=== PATIENT | female | born 1930 | race Caucasian/White ===

== ENCOUNTER 2017-01-04 15:11 | Emergency (ER) | payer MEDICARE, OTHER ==
[2017-01-04 15:24] VITALS: BP 120/54
--- NOTE | 2017-01-04 15:48 | UC ---
General HPI - HPI Summary HPI Summary: 2 DAYS OF MILD RUNNY NOSE, FATIGUE AND CORONEL. FEELS ACHY. DENIES, COUGH, FEVER, ST , EAR PAIN, N/V/D. NO BACK PAIN. DOES HAVE SOME URINARY FREQUENCY AND HAS HAD UTI'S IN THE PAST. WONDERS IF SHE HAS THE FLU. HAD A FLU SHOT ABOUT A MONTH AGO. - History of Current Complaint Chief Complaint: UCGeneralIllness Stated Complaint: FLU SYMPTOMS,FATIGUE,HEADACHE Time Seen by Provider: 01/04/17 15:30 Hx Obtained From: Patient, Family/Occupational Health And Safety Adviser - Onset/Duration: Gradual Onset, Lasting Days, Still Present Timing: Constant Onset Severity: Moderate Current Severity: Moderate Pain Intensity: 0 - Allergy/Home Medications Allergies/Adverse Reactions: Allergies Allergy/AdvReac Type Severity Reaction Status Date / Time Penicillins Allergy Rash Verified 01/04/17 15:25 Pollen Allergy Runny Nose Uncoded 01/04/17 15:24 Sulfa Drugs Allergy Rash Uncoded 01/04/17 15:25 Home Medications: Home Medications Allergy Pills 01/04/17 [History] Coumadin 1 tab PO DAILY 01/04/17 [History Confirmed 01/04/17] PMH/Surg Hx/FS Hx/Imm Hx - Additional Past Medical History Additional PMH: FACTOR V LEIDEN - Surgical History Surgical History: None Surgery Procedure, Year, and Place: LEFT STERE[facility] 11/2010, open biopsy left breast in [place]. hysterectomy. ectopic - Family History Known Family History: Negative: Hypertension - Social History Alcohol Use: None Substance Use Type: None Smoking Status (MU): Never Smoked Tobacco - Immunization History Most Recent Influenza Vaccination: Fall 2016 Review of Systems Constitutional: Fatigue ENT: Nasal Discharge Respiratory: Negative Cardiovascular: Negative Gastrointestinal: Negative Genitourinary: Frequency Musculoskeletal: Myalgia Neurological: Headache All Other Systems Reviewed And Are Negative: Yes Physical Exam Triage Information Reviewed: Yes Appearance: Well-Appearing, No Pain Distress, Well-Nourished Vital Signs: Initial Vital Signs Temp 98 F 01/04/17 15:17 Pulse 87 01/04/17 15:17 Resp 16 01/04/17 15:17 BP 120/54 01/04/17 15:17 Pulse Ox 100 01/04/17 15:17 Vital Signs Reviewed: Yes Eyes: Positive: Conjunctiva Clear ENT: Positive: Hearing grossly normal, Pharynx normal, TMs normal Neck: Positive: Supple, Nontender, No Lymphadenopathy Respiratory Exam: Normal Cardiovascular Exam: Normal Abdomen Description: Positive: Nontender, Soft. Negative: CVA Tenderness (R), CVA Tenderness (L), Distended, Guarding Musculoskeletal: Positive: No Edema Neurological: Positive: Alert Psychological: Positive: Normal Response To Family, Age Appropriate Behavior Skin: Negative: rashes Diagnostics - Laboratory Diagnostic Studies Completed/Ordered: URINE TRACE BLOOD, RAPID FLU NEG Course/Dx - Differential Dx - Multi-Symptom Provider Diagnoses: ACUTE VIRAL SYNDROME Discharge - Discharge Plan Condition: Stable Disposition: HOME Patient Education Materials: Viral Syndrome (ED) Referrals: Ghassan Beck MD [Primary Care Provider] - 1 Week Additional Instructions: VIRAL SYNDROME: The physician has diagnosed a viral infection. Viruses not only cause "colds," but can cause many different symptoms including generalized aching, fever, headache, cough, diarrhea, nausea, vomiting, and fatigue. The treatment, for the most part, is simply relief of symptoms. This means that antibiotics are usually not given. Rest, fluids, pain medications and, occasionally, medication for the specific symptoms that are most bothersome will be prescribed. Contact the physician if you develop any new or unusual symptoms such as severe headache, stiff neck, high fever, chest pain, productive cough, or shortness of breath. You should be rechecked if you don't see marked improvement within seven to 10 days. FLU TEST NEGATIVE. URINE DIP HAD SOME TRACE BLOOD BUT NO SIGN OF INFECTION. FOLLOW-UP WITH UROLOGY TO ENSURE THE BLOOD CLEARS. AT PRESENT YOUR SYMPTOMS DO NOT HAVE A CLEAR BACTERIAL CAUSE. NO IMMEDIATE INTERVENTION INDICATED AT PRESENT. FOLLOW-UP WITH YOUR PCP IF YOU ARE NOT IMPROVING EXPECTED OVER THE NEXT WEEK OR SO.
== END 2017-01-04 16:38 | disposition home or self-care (01) ==
LOC: UCEAST 15:11
DX: B34.9 Viral infection, unspecified (principal); R35.0 Frequency of micturition; Z87.440 Personal history of urinary (tract) infections; Z88.0 Allergy status to penicillin; Z88.2 Allergy status to sulfonamides
CPT/HCPCS: 81003; 87502; 99211; G0463

== ENCOUNTER 2017-06-09 19:04 | Inpatient (IN) | payer MEDICARE, OTHER ==
[2017-06-09] MEDS ORDERED: Ketorolac INJ* 30 MG/ML 1 ML VIAL IV ONE (20:17)
[2017-06-09 20:26] LABS: ABS Basophils 0.1 10^3/ul (0-0.2); ABS Eosinophils 0.2 10^3/ul (0-0.6); ABS Lymphocytes 1.4 10^3/ul (1.0-4.8); ABS Monocytes 1.4 10^3/ul (0-0.8); ABS Neutrophils 9.9 10^3/ul (1.5-7.7); ABS Nucleated RBC 0 10^3/ul; Eosinophil % 1.9 % (0-6); Hematocrit 35 % (35-47); Hemoglobin 11.9 g/dl (12.0-16.0); Lymphocyte % 10.5 % (25-47); Mean Corpuscular HGB Conc 34 g/dl (31-36); Mean Corpuscular Hemoglobin 30 pg (27-31); Mean Corpuscular Volume 89 fL (80-97); Mean Platelet Volume 8 um3 (7.4-10.4); Nucleated Red Blood Cells % 0.1; Platelet Count 180 10^3/ul (150-450); Red Blood Count 3.96 10^6/ul (4.0-5.4); Red Cell Distribution Width 14 % (10.5-15)
[2017-06-09 20:38] LABS: INR 1.4 (0.77-1.02)
[2017-06-09 20:45] LABS: EGFR Non-African American 60.4 (>60)
--- NOTE | 2017-06-09 20:53 | RAD ---
INDICATION: Chest pain. COMPARISON: There are no prior studies available for comparison. TECHNIQUE: A portable view of the chest was obtained. FINDINGS: Cardiac and mediastinal contours appear to be within normal limits. The lungs are underinflated. There is a small infiltrate at the left lung base. No pleural effusion is seen. IMPRESSION: LOW LUNG VOLUMES, SMALL LEFT BASILAR INFILTRATE.
[2017-06-09] MEDS ORDERED: Warfarin TAB(*) 1 MG PO SCH (21:00)
[2017-06-09] MEDS ORDERED: Iohexol 350* (CONTRAST) 500 ML MDV IV ONE (21:25)
--- NOTE | 2017-06-09 21:51 | RAD ---
INDICATION: Chest pain. COMPARISON: Comparison is made with a prior chest x-ray study from June 09, 2017. TECHNIQUE: A CT angiogram of the chest was performed with intravenous following intravenous injection of 58 ml of Omnipaque 350 nonionic contrast. Contiguous axial sections were obtained from the lung apices through the lung bases. Images were reconstructed in the coronal and sagittal planes. FINDINGS: There are intraluminal filling defects in several left basilar segmental and subsegmental arteries consistent with multiple pulmonary emboli. The heart is within normal limits in size. There is a trace pericardial effusion. The thoracic aorta is normal in caliber and demonstrates homogeneous contrast opacification. No significant enlarged mediastinal or hilar lymph nodes are seen. There is a small left lower lobe infiltrate and a small left pleural effusion. Images of the upper abdomen demonstrate no acute finding. There appear to be bilateral renal cysts which are partially visualized on this study. No significant focal osseous abnormality is seen. The results of this exam were called to the referring clinician. IMPRESSION: 1. MULTIPLE LEFT LOWER LOBE PULMONARY EMBOLI. 2. TRACE PERICARDIAL EFFUSION. 3. SMALL LEFT LOWER LOBE INFILTRATE AND SMALL LEFT PLEURAL EFFUSION.
[2017-06-09] MEDS ORDERED: Enoxaparin(*) 60 MG/0.6 ML SYR SUBCUT ONE (22:50)
--- NOTE | 2017-06-09 23:09 | HP ---
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 Today around 1000 AM she began having upper back and right shoulder pain without associated SOB, N/V, chest pain, sweats, cough, congestion, F/C, diarrhea, change in activity/injury, or other issue. D-dimer was >800 and CTA chest revealed multiple L lung emboli. She will be admitted for enoxaparin bridging to warfarin. PMedHx factor V leiden deficiency DVT failed rivaroxaban, started on warfarin last Tuesday dementia, mild bordering moderate Ambulatory Orders Acetaminophen TAB* [Tylenol TAB*] 325 mg PO Q4H PRN 06/09/17 Warfarin TAB(*) [Coumadin TAB(*)] 3 mg PO EVERY OTHER DAY 06/09/17 Warfarin TAB(*) [Coumadin TAB(*)] 4.5 mg PO EVERY OTHER DAY 06/09/17 Allergies Penicillins Allergy (Verified 06/09/17 19:23) Rash Pollen Allergy (Uncoded 06/09/17 19:23) Runny Nose Sulfa Drugs Allergy (Uncoded 06/09/17 19:23) Rash PSurgHx tonsillectomy hysterectomy SocHx: no tobacco, alcohol, or recreational drugs; lives with ; retired preschool teacher & historian research assistant; full code status FamHx: Mother: passed at 91 of "old age"; Father: passed in his late 60s 2nd colon CA ROS: as above, otherwise reviewed and all were negative vitals: Vital Signs Temp 36.9 C 06/10/17 00:42 Pulse 111 06/10/17 00:42 Resp 14 06/10/17 00:42 BP 140/68 06/10/17 00:42 Pulse Ox 98 06/10/17 01:16 Intake & Output 06/09/17 06/09/17 06/10/17 11:59 23:59 11:59 Weight 49.895 kg 120.1 kg Constitutional: NAD, normally developed, elderly white female HEENM: atraumatic; sclera/conjunctiva: anicteric/clear; hearing: clinically mildly decreased; oropharynx: clear, mucosa moist Neck: soft tissue: non-tender; thyroid: normal Pulmonary: clear to auscultation bilaterally, good aeration, no accessory muscle use CV: RR/RR, normal S1S2, no carotid bruit, no jugular venous distention, 2+ B DP/ PT, no edema Abdominal: soft, non-distended, non-tender, no rebound/guarding/rigidity, normoactive bowel sounds, no hepatosplenomegaly or masses, no costovertebral angle tenderness Musculoskeletal: general: grossly intact, no tenderness to palpation Integumental: normal appearance & texture of exposed skin for age, bruising R posterior hand Psychiatric orientation: AA&O to PP, loosely to situation affect: calm mood: cooperative eye contact: fair content: borderline reliability memory: impaired responses: timely insight: fair to poor Testing: Lab Results 06/09/17 06/09/17 06/09/17 Range/Units 20:15 20:15 20:15 WBC 13.0 H (3.5-10.8) 10^3/ul RBC 3.96 L (4.0-5.4) 10^6/ul Hgb 11.9 L (12.0-16.0) g/dl Hct 35 (35-47) % MCV 89 (80-97) fL MCH 30 (27-31) pg MCHC 34 (31-36) g/dl RDW 14 (10.5-15) % Plt Count 180 (150-450) 10^3/ul MPV 8 (7.4-10.4) um3 Neut % (Auto) 76.4 (38-83) % Lymph % (Auto) 10.5 L (25-47) % Luna % (Auto) 10.5 H (0-7) % Eos % (Auto) 1.9 (0-6) % Baso % (Auto) 0.7 (0-2) % Absolute Neuts (auto) 9.9 H (1.5-7.7) 10^3/ul Absolute Lymphs (auto) 1.4 (1.0-4.8) 10^3/ul Absolute Monos (auto) 1.4 H (0-0.8) 10^3/ul Absolute Eos (auto) 0.2 (0-0.6) 10^3/ul Absolute Basos (auto) 0.1 (0-0.2) 10^3/ul Absolute Nucleated RBC 0 10^3/ul Nucleated RBC % 0.1 INR (Anticoag Therapy) 1.40 H (0.77-1.02) APTT 27.4 (26.0-36.3) seconds D-Dimer, Quantitative 854 H (Less Than 230) ng/mL Sodium (133-145) mmol/L Potassium (3.5-5.0) mmol/L Chloride (101-111) mmol/L Carbon Dioxide (22-32) mmol/L Anion Gap (2-11) mmol/L BUN (6-24) mg/dL Creatinine (0.51-0.95) mg/dL Est GFR ( Amer) (>60) Est GFR (Non-Af Amer) (>60) BUN/Creatinine Ratio (8-20) Glucose (70-100) mg/dL Calcium (8.6-10.3) mg/dL Total Bilirubin (0.2-1.0) mg/dL AST (13-39) U/L ALT (7-52) U/L Alkaline Phosphatase (34-104) U/L Troponin I (<0.04) ng/mL B-Natriuretic Peptide 77 ( - 100) pg/mL Total Protein (6.4-8.9) g/dL Albumin (3.2-5.2) g/dL Globulin (2-4) g/dL Albumin/Globulin Ratio (1-3) 06/09/17 Range/Units 20:15 WBC (3.5-10.8) 10^3/ul RBC (4.0-5.4) 10^6/ul Hgb (12.0-16.0) g/dl Hct (35-47) % MCV (80-97) fL MCH (27-31) pg MCHC (31-36) g/dl RDW (10.5-15) % Plt Count (150-450) 10^3/ul MPV (7.4-10.4) um3 Neut % (Auto) (38-83) % Lymph % (Auto) (25-47) % Luna % (Auto) (0-7) % Eos % (Auto) (0-6) % Baso % (Auto) (0-2) % Absolute Neuts (auto) (1.5-7.7) 10^3/ul Absolute Lymphs (auto) (1.0-4.8) 10^3/ul Absolute Monos (auto) (0-0.8) 10^3/ul Absolute Eos (auto) (0-0.6) 10^3/ul Absolute Basos (auto) (0-0.2) 10^3/ul Absolute Nucleated RBC 10^3/ul Nucleated RBC % INR (Anticoag Therapy) (0.77-1.02) APTT (26.0-36.3) seconds D-Dimer, Quantitative (Less Than 230) ng/mL Sodium 137 (133-145) mmol/L Potassium 4.2 (3.5-5.0) mmol/L Chloride 103 (101-111) mmol/L Carbon Dioxide 26 (22-32) mmol/L Anion Gap 8 (2-11) mmol/L BUN 11 (6-24) mg/dL Creatinine 0.89 (0.51-0.95) mg/dL Est GFR ( Amer) 77.7 (>60) Est GFR (Non-Af Amer) 60.4 (>60) BUN/Creatinine Ratio 12.4 (8-20) Glucose 119 H (70-100) mg/dL Calcium 9.8 (8.6-10.3) mg/dL Total Bilirubin 0.70 (0.2-1.0) mg/dL AST 21 (13-39) U/L ALT 20 (7-52) U/L Alkaline Phosphatase 78 (34-104) U/L Troponin I 0.00 (<0.04) ng/mL B-Natriuretic Peptide ( - 100) pg/mL Total Protein 6.8 (6.4-8.9) g/dL Albumin 4.4 (3.2-5.2) g/dL Globulin 2.4 (2-4) g/dL Albumin/Globulin Ratio 1.8 (1-3) ECG, personally reviewed: sinus tachycardia rate 108, subtle ST depression V3-4 CXR, personally reviewed: IMPRESSION: LOW LUNG VOLUMES, SMALL LEFT BASILAR INFILTRATE. CTA chest, personally reviewed: IMPRESSION: 1. MULTIPLE LEFT LOWER LOBE PULMONARY EMBOLI. 2. TRACE PERICARDIAL EFFUSION. 3. SMALL LEFT LOWER LOBE INFILTRATE AND SMALL LEFT PLEURAL EFFUSION. Impression: 86F presenting with a DVT failed rivaroxaban, switched to warfarin last Ferdinand now with subtherapeutic INR found to have multiple L sided PEs DIAGNOSIS & PLAN Primary DVT/PE : enxaparin bridge to therapeutic warfarin : supplemental oxygen : pain control, as needed : supportive care factor V leiden deficiency : warfarin as above Secondary dementia, mild bordering moderate : PCP to consider initiation of donepezil outpatient upon follow up Admission Rational: inpatient for DVT/PE in a patient at high risk of morbidity/ mortality; inappropriate for outpatient setting DVTp: enoxaparin SQ Code Status: full HCP:
[2017-06-10] MEDS ORDERED: Acetaminophen TAB* 325 MG PO PRN (00:09)
[2017-06-10] MEDS ORDERED: Ondansetron INJ* 2 MG/ML VIAL IV PRN (00:14)
[2017-06-10] MEDS ORDERED: CMCS: Melatonin (NF) 3 MG TAB PO PRN (00:14)
[2017-06-10] MEDS ORDERED: traMADol TAB* 50 MG PO PRN (00:14)
[2017-06-10] MEDS: NS 0.9% 1000 ML* 1,000 ML IV SCH ×2 (01:12→21:55)
[2017-06-10] MEDS: Omeprazole CAP* 20 MG PO SCH (05:30)
[2017-06-10] MEDS: Enoxaparin(*) 60 MG/0.6 ML SYR SUBCUT SCH ×2 (08:43→21:55)
[2017-06-10] MEDS: Docusate CAP* 100 MG PO SCH ×2 (08:43→21:55)
--- NOTE | 2017-06-10 10:39 | PN ---
Subjective Date of Service: 06/10/17 Interval History: Pt is feeling well. She denies any SOB or CP. She has not ambulated yet. Objective Active Medications: Acetaminophen (Tylenol Tab*) 325 mg PO Q4H PRN PRN Reason: PAIN Docusate Sodium (Colace Cap*) 200 mg PO BID [facility] Last Admin: 06/10/17 08:43 Dose: 200 mg Enoxaparin Sodium (Lovenox(*)) 50 mg SUBCUT Q12H [facility] Last Admin: 06/10/17 08:43 Dose: 50 mg Sodium Chloride (Ns 0.9% 1000 Ml*) 1,000 mls @ 50 mls/hr IV PER RATE [facility] Last Admin: 06/10/17 01:12 Dose: 50 mls/hr Melatonin (Melatonin (Nf)) 3 mg PO BEDTIME PRN; Protocol PRN Reason: Sleep Omeprazole (Prilosec Cap*) 20 mg PO DAILY@0600 [facility] Last Admin: 06/10/17 05:30 Dose: 20 mg Ondansetron HCl (Zofran Inj*) 4 mg IV Q6H PRN PRN Reason: NAUSEA Tramadol HCl (Ultram*) 50 mg PO Q6H PRN PRN Reason: PAIN Warfarin Sodium (Coumadin Tab(*)) 4.5 mg PO EVERY OTHER DAY@1700 [facility] PRN Reason: Protocol Last Admin: 06/10/17 01:10 Dose: 4.5 mg Warfarin Sodium (Coumadin Tab(*)) 3 mg PO EVERY OTHER DAY@1700 [facility] PRN Reason: Protocol Vital Signs - 8 hr 06/10/17 06/10/17 06/10/17 07:31 07:50 09:15 Temperature 100.4 F 98.9 F Pulse Rate 110 Respiratory 15 18 Rate Blood Pressure 132/61 (mmHg) O2 Sat by Pulse 96 Oximetry Oxygen Devices in Use Now: None Appearance: Elderly petite female sitting up in bed, NAD Eyes: No Scleral Icterus Ears/Nose/Mouth/Throat: Mucous Membranes Moist Respiratory: Symmetrical Chest Expansion and Respiratory Effort, Clear to Auscultation - slightly diminished breath sounds at the L base Cardiovascular: NL Sounds; No Murmurs; No JVD, No Edema, - - mildly tachycardic but regular Abdominal: NL Sounds; No Tenderness; No Distention Extremities: No Clubbing, Cyanosis Skin: No Nodules or Sclerosis Neurological: - - slighlty confused Result Diagrams: 06/09/17 20:15 06/09/17 20:15 Assess/Plan/Problems-Billing Ms Villa is an 86 yo F who has a h/o DVT, factor V leiden deficiency and mild cognitive impairment who presented to the ER with c/o upper back and R shoulder pain and was found to have multiple L lower lobe pulmonary emboli. - Patient Problems (1) Pulmonary emboli Current Visit: Yes Status: Acute Code(s): I26.99 - OTHER PULMONARY EMBOLISM WITHOUT ACUTE COR PULMONALE SNOMED Code(s): 80011604 Comment: The patient had been on xarelto when she was found to have a new R LE DVT. The xarelto was discontinued and she was started on coumadin without bridiging with lovenox. She then subsequently developed the PEs. I do not think her being off the lovenox is the cause but she does need to be bridged. She will continue on lovenox and coumadin for now. Repeat INR tomorrow. She has a mild leukocytosis and low grade fever. ? secondary to the PE. Will also check UA as possible cause of fever/elevated WBC count. (2) DVT prophylaxis Current Visit: Yes Status: Acute Code(s): XHO3857 - SNOMED Code(s): 119903063 Comment: lovenox bridge to coumadin (3) Full code status Current Visit: Yes Status: Acute Code(s): Z78.9 - OTHER SPECIFIED HEALTH STATUS SNOMED Code(s): 171516802
[2017-06-10 15:16] LABS: Urine Appearance Clear; Urine Blood 1+ (Negative); Urine Color Yellow; Urine Ketones 1+ (Negative); Urine Protein Negative (Negative); Urine Specific Gravity 1.016 (1.010-1.030); Urine Urobilinogen Negative (Negative)
--- NOTE | 2017-06-10 15:59 | ED ---
Chintan Rollins Gabriel, scribed for Bolivar Hoffmann MD on 06/09/17 at 2002 . HPI Chest Pain - HPI Summary HPI Summary: This patient is a 86 year old F presenting to [facility] accompanied by her with a chief complaint of left sided CP since 1000 this morning. The patient rates the sharp pain 5/10 in severity and states it radiates into her LUE and back. The pain is aggravated with deep inspiration. Patient reports general malaise for the past couple days. Patient denies strenuous activity, SOB, nausea , light headedness, cough, congestion, and rhinorrhea. Pt is on Coumadin for a prior DVT. No cardiac history. - History of Current Complaint Chief Complaint: EDChestPainROMI Time Seen by Provider: 06/09/17 19:52 Hx Obtained From: Patient Onset/Duration: Started Hours Ago - since 1000 am, Still Present Timing: Constant Initial Severity: Moderate Current Severity: Moderate Pain Intensity: 5 Pain Scale Used: 0-10 Numeric Chest Pain Location: Left Anterior Chest Pain Radiates: Yes Chest Pain Radiates To:: Back, Arm Character: Sharp/Stabbing Aggravating Factor(s): Deep Breaths Associated Signs and Symptoms: Positive: Negative - strenuous activity, SOB, nausea, light headedness, cough, congestion, and rhinorrhea., Other: - general malaise - Allergy/Home Medications Allergies/Adverse Reactions: Allergies Allergy/AdvReac Type Severity Reaction Status Date / Time Penicillins Allergy Rash Verified 06/09/17 19:23 Pollen Allergy Runny Nose Uncoded 06/09/17 19:23 Sulfa Drugs Allergy Rash Uncoded 06/09/17 19:23 Home Medications: Home Medications Acetaminophen TAB* [Tylenol TAB*] 325 mg PO Q4H PRN 06/09/17 [History Confirmed 06/09/17] Warfarin TAB(*) [Coumadin TAB(*)] 3 mg PO EVERY OTHER DAY 06/09/17 [History Confirmed 06/09/17] Warfarin TAB(*) [Coumadin TAB(*)] 4.5 mg PO EVERY OTHER DAY 06/09/17 [History Confirmed 06/09/17] PMH/Surg Hx/FS Hx/Imm Hx Endocrine/Hematology History: Denies: Hx Bone Marrow Disease, Hx Diabetes, Hx Thyroid Disease Cardiovascular History: Reports: Hx Deep Vein Thrombosis Denies: Hx Congenital Heart Disease, Hx Hypertension, Hx Pacemaker/ICD Respiratory History: Denies: Hx Asthma, Hx Chronic Obstructive Pulmonary Disease (COPD) GI History: Denies: Hx Gastroesophageal Reflux Disease, Hx Ulcer History: Denies: Hx Kidney Stones Sensory History: Denies: Hx Legally Blind, Hx Hearing Aid Psychiatric History: Denies: Hx Panic Disorder - Cancer History Hx Chemotherapy: No Hx Radiation Therapy: No - Surgical History Surgery Procedure, Year, and Place: LEFT [facility] 11/2010, open biopsy left breast in [place]. hysterectomy. ectopic Infectious Disease History: No Infectious Disease History: Denies: Hx Hepatitis, Hx Human Immunodeficiency Virus (HIV), History Other Infectious Disease, Traveled Outside the in Last 30 Days - Family History Known Family History: Negative: Hypertension, Renal Disease, Respiratory Disease, Seizure Disorder - Social History Lives: With Family Alcohol Use: None Substance Use Type: Reports: None Smoking Status (MU): Never Smoked Tobacco Review of Systems Constitutional: Other - strenuous activity, Positive: Other - general malaise ENT: Negative - congestion Negative: Nasal Discharge Positive: Chest Pain Negative: Shortness Of Breath, Cough Negative: Nausea Neurological: Negative - light headedness All Other Systems Reviewed And Are Negative: Yes Physical Exam - Summary Physical Exam Summary: Appearance: Well-appearing, no distress, Well-nourished Skin: Warm, color reflects adequate perfusion Head: Normal Head/Face inspection Eyes: Conjunctiva clear ENT: Normal inspection Neck: Supple, no nodes, no JVD. Respiratory: Lungs clear, Normal breath sounds, no respiratory distress; no r/r/ w Cardio: RRR, No murmur, pulses normal, brisk capillary refill Abdomen: soft, nontender, no guarding, no rebound Bowel sounds: present Musculoskeletal: Strength Intact/ ROM intact. No calf tenderness. No edema. Mild reproducible anterior left sided chest wall tenderness Neuro: Alert, muscle tone normal, facial symmetry, speech normal, sensory/motor intact Psychological: Normal Triage Information Reviewed: Yes Vital Signs On Initial Exam: Initial Vitals Temp Pulse Resp BP Pulse Ox 97.5 F 110 16 166/72 99 06/09/17 19:20 06/09/17 19:20 06/09/17 19:20 06/09/17 19:20 06/09/17 19:20 Vital Signs Reviewed: Yes Diagnostics - Vital Signs Vital Signs Temp Pulse Resp BP Pulse Ox 06/09/17 19:20 97.5 F 110 16 166/72 99 - Laboratory Lab Results: Lab Results 06/09/17 06/09/17 06/09/17 Range/Units 20:15 20:15 20:15 WBC 13.0 H (3.5-10.8) 10^3/ul RBC 3.96 L (4.0-5.4) 10^6/ul Hgb 11.9 L (12.0-16.0) g/dl Hct 35 (35-47) % MCV 89 (80-97) fL MCH 30 (27-31) pg MCHC 34 (31-36) g/dl RDW 14 (10.5-15) % Plt Count 180 (150-450) 10^3/ul MPV 8 (7.4-10.4) um3 Neut % (Auto) 76.4 (38-83) % Lymph % (Auto) 10.5 L (25-47) % [place] % (Auto) 10.5 H (0-7) % Eos % (Auto) 1.9 (0-6) % Baso % (Auto) 0.7 (0-2) % Absolute Neuts (auto) 9.9 H (1.5-7.7) 10^3/ul Absolute Lymphs (auto) 1.4 (1.0-4.8) 10^3/ul Absolute Monos (auto) 1.4 H (0-0.8) 10^3/ul Absolute Eos (auto) 0.2 (0-0.6) 10^3/ul Absolute Basos (auto) 0.1 (0-0.2) 10^3/ul Absolute Nucleated RBC 0 10^3/ul Nucleated RBC % 0.1 INR (Anticoag Therapy) 1.40 H (0.77-1.02) APTT 27.4 (26.0-36.3) seconds D-Dimer, Quantitative 854 H (Less Than 230) ng/mL Sodium (133-145) mmol/L Potassium (3.5-5.0) mmol/L Chloride (101-111) mmol/L Carbon Dioxide (22-32) mmol/L Anion Gap (2-11) mmol/L BUN (6-24) mg/dL Creatinine (0.51-0.95) mg/dL Est GFR ( Amer) (>60) Est GFR (Non-Af Amer) (>60) BUN/Creatinine Ratio (8-20) Glucose (70-100) mg/dL Calcium (8.6-10.3) mg/dL Total Bilirubin (0.2-1.0) mg/dL AST (13-39) U/L ALT (7-52) U/L Alkaline Phosphatase (34-104) U/L Troponin I (<0.04) ng/mL B-Natriuretic Peptide 77 ( - 100) pg/mL Total Protein (6.4-8.9) g/dL Albumin (3.2-5.2) g/dL Globulin (2-4) g/dL Albumin/Globulin Ratio (1-3) 03/15/18 Range/Units 20:15 WBC (3.5-10.8) 10^3/ul RBC (4.0-5.4) 10^6/ul Hgb (12.0-16.0) g/dl Hct (35-47) % MCV (80-97) fL MCH (27-31) pg MCHC (31-36) g/dl RDW (10.5-15) % Plt Count (150-450) 10^3/ul MPV (7.4-10.4) um3 Neut % (Auto) (38-83) % Lymph % (Auto) (25-47) % [place] % (Auto) (0-7) % Eos % (Auto) (0-6) % Baso % (Auto) (0-2) % Absolute Neuts (auto) (1.5-7.7) 10^3/ul Absolute Lymphs (auto) (1.0-4.8) 10^3/ul Absolute Monos (auto) (0-0.8) 10^3/ul Absolute Eos (auto) (0-0.6) 10^3/ul Absolute Basos (auto) (0-0.2) 10^3/ul Absolute Nucleated RBC 10^3/ul Nucleated RBC % INR (Anticoag Therapy) (0.77-1.02) APTT (26.0-36.3) seconds D-Dimer, Quantitative (Less Than 230) ng/mL Sodium 137 (133-145) mmol/L Potassium 4.2 (3.5-5.0) mmol/L Chloride 103 (101-111) mmol/L Carbon Dioxide 26 (22-32) mmol/L Anion Gap 8 (2-11) mmol/L BUN 11 (6-24) mg/dL Creatinine 0.89 (0.51-0.95) mg/dL Est GFR ( Amer) 77.7 (>60) Est GFR (Non-Af Amer) 60.4 (>60) BUN/Creatinine Ratio 12.4 (8-20) Glucose 119 H (70-100) mg/dL Calcium 9.8 (8.6-10.3) mg/dL Total Bilirubin 0.70 (0.2-1.0) mg/dL AST 21 (13-39) U/L ALT 20 (7-52) U/L Alkaline Phosphatase 78 (34-104) U/L Troponin I 0.00 (<0.04) ng/mL B-Natriuretic Peptide ( - 100) pg/mL Total Protein 6.8 (6.4-8.9) g/dL Albumin 4.4 (3.2-5.2) g/dL Globulin 2.4 (2-4) g/dL Albumin/Globulin Ratio 1.8 (1-3) Result Diagrams: 06/09/17 20:15 06/09/17 20:15 Lab Statement: Any lab studies that have been ordered have been reviewed, and results considered in the medical decision making process. - Radiology CXR Radiology Interpretation Completed By: Radiologist - LOW LUNG VOLUMES, SMALL LEFT BASILAR INFILTRATE. ED physician has reviewed this radiology report. - CT CTA Chest CT Interpretation Completed By: Radiologist - 1. MULTIPLE LEFT LOWER LOBE PULMONARY EMBOLI. 2. TRACE PERICARDIAL EFFUSION. 3. SMALL LEFT LOWER LOBE INFILTRATE AND SMALL LEFT PLEURAL EFFUSION. ED physician has reviewed this radiology report. - EKG 1952 Cardiac Rate: NL EKG Rhythm: Sinus Rhythm - at 73 BPM EKG Interpretation: normal intervals, normal axis, no ST/T changes Re-Evaluation - Re-Evaluation First Eval Re-Evaluation Time: 22:18 Change: Improved - pt resting comfortably in bed. pt back/shoulder pain resolved. pt with evidence of multiple left sided PE's despite oral Coumadin. Plan for admission. Chest Pain Course/Dx - Course Course Of Treatment: Pt subtherapeutic on Coumadin, with development of multiple PE's. Plan for Lovenox with admssion. - Chest Pain Differential Diagnosis/HQI/PQRI: Acute OR, ACS, Angina, CHF, Chest Wall, Pulmonary Edema, Pulmonary Embolism - Diagnoses Provider Diagnoses: Pulmonary embolism - Provider Notifications Discussed Care Of Patient With: Melvin Hernandez Time Discussed With Above Provider: 22:25 Instructed by Provider To: Admit As Inpatient Discharge - Discharge Plan Condition: Stable Disposition: ADMITTED TO [facility] documentation as recorded by the Chintan huynh Gabriel accurately reflects the service I personally performed and the decisions made by , Bolivar Hoffmann MD.
[2017-06-10] MEDS ORDERED: Warfarin TAB(*) 3 MG PO SCH (17:00)
[2017-06-11] MEDS: Omeprazole CAP* 20 MG PO SCH (06:17)
[2017-06-11 06:55] LABS: Hematocrit 30 % (35-47); Hemoglobin 10.5 g/dl (12.0-16.0); Mean Corpuscular HGB Conc 35 g/dl (31-36); Mean Corpuscular Hemoglobin 30 pg (27-31); Mean Corpuscular Volume 87 fL (80-97); Mean Platelet Volume 8 um3 (7.4-10.4); Platelet Count 158 10^3/ul (150-450); Red Blood Count 3.47 10^6/ul (4.0-5.4); Red Cell Distribution Width 13 % (10.5-15); White Blood Count 9.9 10^3/ul (3.5-10.8)
[2017-06-11 06:59] LABS: INR 2.56 (0.77-1.02)
[2017-06-11 07:08] LABS: EGFR Non-African American 68.3 (>60)
[2017-06-11] MEDS: Enoxaparin(*) 60 MG/0.6 ML SYR SUBCUT SCH ×2 (09:55→21:05)
[2017-06-11] MEDS: Docusate CAP* 100 MG PO SCH ×2 (09:55→21:05)
[2017-06-11] MEDS ORDERED: cefTRIAXone(*) 1 GM in NS 0.9% 50 ML* 50 ML IVPB SCH (11:00)
[2017-06-11] MEDS: Azithromycin IV(*) 500 MG in D5W 250 ML BAG* 250 ML IVPB SCH (11:04)
--- NOTE | 2017-06-11 11:05 | PN ---
Subjective Date of Service: 06/11/17 Interval History: Pt is feeling well. She denies any pain or SOB. She questions when she can go home. Objective Active Medications: Acetaminophen (Tylenol Tab*) 325 mg PO Q4H PRN PRN Reason: PAIN Last Admin: 06/11/17 06:17 Dose: 325 mg Docusate Sodium (Colace Cap*) 200 mg PO BID [facility] Last Admin: 06/11/17 09:55 Dose: 200 mg Enoxaparin Sodium (Lovenox(*)) 50 mg SUBCUT Q12H [facility] Last Admin: 06/11/17 09:55 Dose: 50 mg Sodium Chloride (Ns 0.9% 1000 Ml*) 1,000 mls @ 50 mls/hr IV PER RATE [facility] Last Admin: 06/10/17 21:55 Dose: 50 mls/hr Azithromycin 500 mg/ Dextrose 250 mls @ 250 mls/hr IVPB Q24H [facility] Ceftriaxone Sodium 1 gm/ (Sodium Chloride) 50 mls @ 200 mls/hr IVPB Q24H [facility] Melatonin (Melatonin (Nf)) 3 mg PO BEDTIME PRN; Protocol PRN Reason: Sleep Omeprazole (Prilosec Cap*) 20 mg PO DAILY@0600 [facility] Last Admin: 06/11/17 06:17 Dose: 20 mg Ondansetron HCl (Zofran Inj*) 4 mg IV Q6H PRN PRN Reason: NAUSEA Tramadol HCl (Ultram*) 50 mg PO Q6H PRN PRN Reason: PAIN Vital Signs - 8 hr 06/11/17 06/11/17 03:28 07:27 Temperature 100.2 F 99.6 F Pulse Rate 107 108 Respiratory 15 15 Rate Blood Pressure 134/60 123/55 (mmHg) O2 Sat by Pulse 97 94 Oximetry Oxygen Devices in Use Now: None Appearance: Elderly female sitting up in bed, NAD Eyes: No Scleral Icterus Ears/Nose/Mouth/Throat: Mucous Membranes Moist Respiratory: Symmetrical Chest Expansion and Respiratory Effort, Clear to Auscultation - diminished at the L base Cardiovascular: NL Sounds; No Murmurs; No JVD, RRR, No Edema Abdominal: NL Sounds; No Tenderness; No Distention Extremities: No Clubbing, Cyanosis Skin: No Nodules or Sclerosis Neurological: Alert and Oriented x 3 Result Diagrams: 06/11/17 06:28 03/17/18 06:28 Additional Lab and Data: Lab Results 06/09/17 06/09/17 06/09/17 Range/Units 20:15 20:15 20:15 WBC 13.0 H (3.5-10.8) 10^3/ul RBC 3.96 L (4.0-5.4) 10^6/ul Hgb 11.9 L (12.0-16.0) g/dl Hct 35 (35-47) % MCV 89 (80-97) fL MCH 30 (27-31) pg MCHC 34 (31-36) g/dl RDW 14 (10.5-15) % Plt Count 180 (150-450) 10^3/ul MPV 8 (7.4-10.4) um3 Neut % (Auto) 76.4 (38-83) % Lymph % (Auto) 10.5 L (25-47) % [place] % (Auto) 10.5 H (0-7) % Eos % (Auto) 1.9 (0-6) % Baso % (Auto) 0.7 (0-2) % Absolute Neuts (auto) 9.9 H (1.5-7.7) 10^3/ul Absolute Lymphs (auto) 1.4 (1.0-4.8) 10^3/ul Absolute Monos (auto) 1.4 H (0-0.8) 10^3/ul Absolute Eos (auto) 0.2 (0-0.6) 10^3/ul Absolute Basos (auto) 0.1 (0-0.2) 10^3/ul Absolute Nucleated RBC 0 10^3/ul Nucleated RBC % 0.1 INR (Anticoag Therapy) 1.40 H (0.77-1.02) APTT 27.4 (26.0-36.3) seconds D-Dimer, Quantitative 854 H (Less Than 230) ng/mL Sodium (133-145) mmol/L Potassium (3.5-5.0) mmol/L Chloride (101-111) mmol/L Carbon Dioxide (22-32) mmol/L Anion Gap (2-11) mmol/L BUN (6-24) mg/dL Creatinine (0.51-0.95) mg/dL Est GFR ( Amer) (>60) Est GFR (Non-Af Amer) (>60) BUN/Creatinine Ratio (8-20) Glucose (70-100) mg/dL Calcium (8.6-10.3) mg/dL Total Bilirubin (0.2-1.0) mg/dL AST (13-39) U/L ALT (7-52) U/L Alkaline Phosphatase (34-104) U/L Troponin I (<0.04) ng/mL B-Natriuretic Peptide 77 ( - 100) pg/mL Total Protein (6.4-8.9) g/dL Albumin (3.2-5.2) g/dL Globulin (2-4) g/dL Albumin/Globulin Ratio (1-3) 03/15/18 Range/Units 20:15 WBC (3.5-10.8) 10^3/ul RBC (4.0-5.4) 10^6/ul Hgb (12.0-16.0) g/dl Hct (35-47) % MCV (80-97) fL MCH (27-31) pg MCHC (31-36) g/dl RDW (10.5-15) % Plt Count (150-450) 10^3/ul MPV (7.4-10.4) um3 Neut % (Auto) (38-83) % Lymph % (Auto) (25-47) % [place] % (Auto) (0-7) % Eos % (Auto) (0-6) % Baso % (Auto) (0-2) % Absolute Neuts (auto) (1.5-7.7) 10^3/ul Absolute Lymphs (auto) (1.0-4.8) 10^3/ul Absolute Monos (auto) (0-0.8) 10^3/ul Absolute Eos (auto) (0-0.6) 10^3/ul Absolute Basos (auto) (0-0.2) 10^3/ul Absolute Nucleated RBC 10^3/ul Nucleated RBC % INR (Anticoag Therapy) (0.77-1.02) APTT (26.0-36.3) seconds D-Dimer, Quantitative (Less Than 230) ng/mL Sodium 137 (133-145) mmol/L Potassium 4.2 (3.5-5.0) mmol/L Chloride 103 (101-111) mmol/L Carbon Dioxide 26 (22-32) mmol/L Anion Gap 8 (2-11) mmol/L BUN 11 (6-24) mg/dL Creatinine 0.89 (0.51-0.95) mg/dL Est GFR ( Amer) 77.7 (>60) Est GFR (Non-Af Amer) 60.4 (>60) BUN/Creatinine Ratio 12.4 (8-20) Glucose 119 H (70-100) mg/dL Calcium 9.8 (8.6-10.3) mg/dL Total Bilirubin 0.70 (0.2-1.0) mg/dL AST 21 (13-39) U/L ALT 20 (7-52) U/L Alkaline Phosphatase 78 (34-104) U/L Troponin I 0.00 (<0.04) ng/mL B-Natriuretic Peptide ( - 100) pg/mL Total Protein 6.8 (6.4-8.9) g/dL Albumin 4.4 (3.2-5.2) g/dL Globulin 2.4 (2-4) g/dL Albumin/Globulin Ratio 1.8 (1-3) Assess/Plan/Problems-Billing Ms Villa is an 86 yo F who has a h/o DVT, factor V leiden deficiency and mild cognitive impairment who presented to the ER with c/o upper back and R shoulder pain and was found to have multiple L lower lobe pulmonary emboli. - Patient Problems (1) Pulmonary emboli Current Visit: Yes Status: Acute Code(s): I26.99 - OTHER PULMONARY EMBOLISM WITHOUT ACUTE COR PULMONALE SNOMED Code(s): 51193275 Comment: The patient's states that she missed several xarelto doses prior to the DVT being identified. Will continue coumadin but hold today as her INR took a very large jump. Stop lovenox as well. Repeat INR tomorrow. (2) Fever Current Visit: Yes Status: Acute Code(s): R50.9 - FEVER, UNSPECIFIED SNOMED Code(s): 997191936 Comment: CTA showed small infiltrate at L base but clinically she has not had cough. As she still has a low grade temp and tachycardia will treat for possible pna. Start ceftriaxone and azithromycin. (3) DVT prophylaxis Current Visit: Yes Status: Acute Code(s): UNV5840 - SNOMED Code(s): 291769894 Comment: coumadin (4) Full code status Current Visit: Yes Status: Acute Code(s): Z78.9 - OTHER SPECIFIED HEALTH STATUS SNOMED Code(s): 356988174
[2017-06-11] MEDS: NS 0.9% 1000 ML* 1,000 ML IV SCH (17:04)
[2017-06-12 05:16] LABS: INR 2.76 (0.77-1.02)
[2017-06-12] MEDS: Omeprazole CAP* 20 MG PO SCH (05:47)
--- NOTE | 2017-06-12 07:31 | PN ---
Subjective Date of Service: 06/12/17 Interval History: Pt is feeling ok. She denies any SOB or cough. She states she is not bringing up any sputum. She denies any pain initially but when I ask her to take a deep breath she states she has pain with deep inspiration at the L base. Objective Active Medications: Acetaminophen (Tylenol Tab*) 325 mg PO Q4H PRN PRN Reason: PAIN Last Admin: 06/11/17 06:17 Dose: 325 mg Docusate Sodium (Colace Cap*) 200 mg PO BID [facility] Last Admin: 06/11/17 21:05 Dose: 200 mg Azithromycin 500 mg/ Dextrose 250 mls @ 250 mls/hr IVPB Q24H [facility] Last Admin: 06/11/17 11:04 Dose: 250 mls/hr Ceftriaxone Sodium 1 gm/ (Sodium Chloride) 50 mls @ 200 mls/hr IVPB Q24H [facility] Last Admin: 06/11/17 12:43 Dose: 200 mls/hr Melatonin (Melatonin (Nf)) 3 mg PO BEDTIME PRN; Protocol PRN Reason: Sleep Omeprazole (Prilosec Cap*) 20 mg PO DAILY@0600 [facility] Last Admin: 06/12/17 05:47 Dose: 20 mg Ondansetron HCl (Zofran Inj*) 4 mg IV Q6H PRN PRN Reason: NAUSEA Last Admin: 06/11/17 12:02 Dose: 4 mg Tramadol HCl (Ultram*) 50 mg PO Q6H PRN PRN Reason: PAIN Warfarin Sodium (Coumadin Tab(*)) 4 mg PO DAILY@1700 [facility] PRN Reason: Protocol Vital Signs - 8 hr 06/11/17 06/12/17 23:50 03:18 Temperature 99.2 F 99.7 F Pulse Rate 123 113 Respiratory 22 22 Rate Blood Pressure 129/70 130/59 (mmHg) O2 Sat by Pulse 95 Oximetry Oxygen Devices in Use Now: None Appearance: Elderly female lying in bed, NAD Eyes: No Scleral Icterus Ears/Nose/Mouth/Throat: Mucous Membranes Moist Respiratory: Symmetrical Chest Expansion and Respiratory Effort, - - diminished breath sounds in all lung alvarado LLL is the most diminished Cardiovascular: NL Sounds; No Murmurs; No JVD, - - mildly tachycardic but regular Abdominal: - - BS+ soft, ND, pt states she is mildly tender with palpation but has no outward signs of discomfort with palpation Extremities: No Clubbing, Cyanosis Skin: No Rash or Ulcers, No Nodules or Sclerosis Neurological: - - pleasantly confused Result Diagrams: 06/11/17 06:28 06/11/17 06:28 Additional Lab and Data: Lab Results 06/09/17 06/09/17 06/09/17 Range/Units 20:15 20:15 20:15 WBC 13.0 H (3.5-10.8) 10^3/ul RBC 3.96 L (4.0-5.4) 10^6/ul Hgb 11.9 L (12.0-16.0) g/dl Hct 35 (35-47) % MCV 89 (80-97) fL MCH 30 (27-31) pg MCHC 34 (31-36) g/dl RDW 14 (10.5-15) % Plt Count 180 (150-450) 10^3/ul MPV 8 (7.4-10.4) um3 Neut % (Auto) 76.4 (38-83) % Lymph % (Auto) 10.5 L (25-47) % [place] % (Auto) 10.5 H (0-7) % Eos % (Auto) 1.9 (0-6) % Baso % (Auto) 0.7 (0-2) % Absolute Neuts (auto) 9.9 H (1.5-7.7) 10^3/ul Absolute Lymphs (auto) 1.4 (1.0-4.8) 10^3/ul Absolute Monos (auto) 1.4 H (0-0.8) 10^3/ul Absolute Eos (auto) 0.2 (0-0.6) 10^3/ul Absolute Basos (auto) 0.1 (0-0.2) 10^3/ul Absolute Nucleated RBC 0 10^3/ul Nucleated RBC % 0.1 INR (Anticoag Therapy) 1.40 H (0.77-1.02) APTT 27.4 (26.0-36.3) seconds D-Dimer, Quantitative 854 H (Less Than 230) ng/mL Sodium (133-145) mmol/L Potassium (3.5-5.0) mmol/L Chloride (101-111) mmol/L Carbon Dioxide (22-32) mmol/L Anion Gap (2-11) mmol/L BUN (6-24) mg/dL Creatinine (0.51-0.95) mg/dL Est GFR ( Amer) (>60) Est GFR (Non-Af Amer) (>60) BUN/Creatinine Ratio (8-20) Glucose (70-100) mg/dL Calcium (8.6-10.3) mg/dL Total Bilirubin (0.2-1.0) mg/dL AST (13-39) U/L ALT (7-52) U/L Alkaline Phosphatase (34-104) U/L Troponin I (<0.04) ng/mL B-Natriuretic Peptide 77 ( - 100) pg/mL Total Protein (6.4-8.9) g/dL Albumin (3.2-5.2) g/dL Globulin (2-4) g/dL Albumin/Globulin Ratio (1-3) 03/15/18 Range/Units 20:15 WBC (3.5-10.8) 10^3/ul RBC (4.0-5.4) 10^6/ul Hgb (12.0-16.0) g/dl Hct (35-47) % MCV (80-97) fL MCH (27-31) pg MCHC (31-36) g/dl RDW (10.5-15) % Plt Count (150-450) 10^3/ul MPV (7.4-10.4) um3 Neut % (Auto) (38-83) % Lymph % (Auto) (25-47) % [place] % (Auto) (0-7) % Eos % (Auto) (0-6) % Baso % (Auto) (0-2) % Absolute Neuts (auto) (1.5-7.7) 10^3/ul Absolute Lymphs (auto) (1.0-4.8) 10^3/ul Absolute Monos (auto) (0-0.8) 10^3/ul Absolute Eos (auto) (0-0.6) 10^3/ul Absolute Basos (auto) (0-0.2) 10^3/ul Absolute Nucleated RBC 10^3/ul Nucleated RBC % INR (Anticoag Therapy) (0.77-1.02) APTT (26.0-36.3) seconds D-Dimer, Quantitative (Less Than 230) ng/mL Sodium 137 (133-145) mmol/L Potassium 4.2 (3.5-5.0) mmol/L Chloride 103 (101-111) mmol/L Carbon Dioxide 26 (22-32) mmol/L Anion Gap 8 (2-11) mmol/L BUN 11 (6-24) mg/dL Creatinine 0.89 (0.51-0.95) mg/dL Est GFR ( Amer) 77.7 (>60) Est GFR (Non-Af Amer) 60.4 (>60) BUN/Creatinine Ratio 12.4 (8-20) Glucose 119 H (70-100) mg/dL Calcium 9.8 (8.6-10.3) mg/dL Total Bilirubin 0.70 (0.2-1.0) mg/dL AST 21 (13-39) U/L ALT 20 (7-52) U/L Alkaline Phosphatase 78 (34-104) U/L Troponin I 0.00 (<0.04) ng/mL B-Natriuretic Peptide ( - 100) pg/mL Total Protein 6.8 (6.4-8.9) g/dL Albumin 4.4 (3.2-5.2) g/dL Globulin 2.4 (2-4) g/dL Albumin/Globulin Ratio 1.8 (1-3) Assess/Plan/Problems-Billing Ms Villa is an 86 yo F who has a h/o DVT, factor V leiden deficiency and mild cognitive impairment who presented to the ER with c/o upper back and R shoulder pain and was found to have multiple L lower lobe pulmonary emboli. - Patient Problems (1) Pulmonary emboli Current Visit: Yes Status: Acute Code(s): I26.99 - OTHER PULMONARY EMBOLISM WITHOUT ACUTE COR PULMONALE SNOMED Code(s): 11949533 Comment: INR surprisingly did not increase much more today. Will resume coumadin 4mg daily. Repeat INR tomorrow. Check Echo today for evidence of R heart strain. (2) Fever Current Visit: Yes Status: Acute Code(s): R50.9 - FEVER, UNSPECIFIED SNOMED Code(s): 844809576 Comment: The patient continues to have temperatures in the high 99's. She remains tachycardic. This is despite starting azithromycin and ceftriaxone yesterday for possible CAP in the L base. Will get CXR today to re-evaluate. Continue Abx therapy. I would like her HR controlled prior to d/c home. (3) DVT prophylaxis Current Visit: Yes Status: Acute Code(s): [id number] - SNOMED Code(s): 402133165 Comment: coumadin (4) Full code status Current Visit: Yes Status: Acute Code(s): Z78.9 - OTHER SPECIFIED HEALTH STATUS SNOMED Code(s): 099850729
[2017-06-12 07:35] LABS: ABS Basophils 0 10^3/ul (0-0.2); ABS Eosinophils 0 10^3/ul (0-0.6); ABS Lymphocytes 0.7 10^3/ul (1.0-4.8); ABS Monocytes 0.9 10^3/ul (0-0.8); ABS Neutrophils 7.3 10^3/ul (1.5-7.7); ABS Nucleated RBC 0 10^3/ul; Eosinophil % 0.5 % (0-6); Hematocrit 27 % (35-47); Hemoglobin 9.4 g/dl (12.0-16.0); Lymphocyte % 8.1 % (25-47); Mean Corpuscular HGB Conc 34 g/dl (31-36); Mean Corpuscular Hemoglobin 30 pg (27-31); Mean Corpuscular Volume 88 fL (80-97); Mean Platelet Volume 8 um3 (7.4-10.4); Nucleated Red Blood Cells % 0; Platelet Count 161 10^3/ul (150-450); Red Blood Count 3.13 10^6/ul (4.0-5.4); Red Cell Distribution Width 13 % (10.5-15)
[2017-06-12] MEDS: Docusate CAP* 100 MG PO SCH ×2 (09:15→22:22)
[2017-06-12] MEDS: Azithromycin IV(*) 500 MG in D5W 250 ML BAG* 250 ML IVPB SCH (09:15)
--- NOTE | 2017-06-12 10:23 | RAD ---
INDICATION: Cough COMPARISON: Chest x-ray dated June 09, 2017 TECHNIQUE: Single AP portable view of the chest was obtained. FINDINGS: Image quality is compromised due to the relative inferiority of a portable chest x-ray. The heart and mediastinum exhibit normal size and contour. Since the most recent chest x-ray there is density obscuring the left hemidiaphragm and causing left costophrenic angle blunting. More superiorly the left lung as well as the right lung are adequately aerated. Visualized bones are normal for the patient's age. IMPRESSION: Interval density obscuring the left hemidiaphragm could be due to pleural effusion with or without compressive atelectasis or pneumonia.
[2017-06-12] MEDS: cefTRIAXone 1000 MG SYRINGE IVPB ONCE IVPB SCH ×2 (10:35)
--- NOTE | 2017-06-12 13:36 | ECHO ---
Patient: AYDEE OCONNOR [facility] Rec#: [id number] : 1930 Date: 06/12/2017 Age: 86y Height: 157.48 cm / 62.0 in Weight: 52.16 kg / 115.0 lbs Sex: F BSA: 1.51 Room#: 404 Admit Date#: 06/09/2017 Type: Inpatient Referring: Debbie Matson DO Reading: Irving Villanueva DO Motor Rebuilder: Libby Abarca RDCS CC: Ghassan Beck MD Transthoracic Echocardiogram Indication: Pulmonary Embolism BP: 130/59 HR: 111 Rhythm: Tachycardia Findings History: Factor V Lieden deficency,prior DVT,dementia. Technical Comments: The study quality is good. Completed at 1155. Left Ventricle: The left ventricular chamber size is normal. There is no left ventricular hypertrophy. Global left ventricular wall motion and contractility are within normal limits. There is normal left ventricular systolic function. The estimated ejection fraction is 55-60%. Normal left atrial size makes clinically significant diastolic dysfunction unlikely. Left Atrium: The left atrial chamber size is normal. Right Ventricle: The right ventricular chamber size and systolic function are within normal limits. Right Atrium: The right atrial cavity size is normal. Aortic Valve: The aortic valve is trileaflet. The aortic valve leaflets are mildly thickened. There is aortic annular calcification.that is mild There is mild aortic regurgitation. There is no evidence of aortic stenosis. Mitral Valve: Mild mitral annular calcification present. The mitral valve leaflets are mildly thickened. There is mild mitral regurgitation. There is no evidence of mitral stenosis. Tricuspid Valve: The tricuspid valve leaflets are normal. There is mild tricuspid regurgitation. There is evidence of mild pulmonary hypertension. There is no tricuspid stenosis. Pulmonic Valve: The pulmonic valve appears normal. There is a trace pulmonic regurgitation. There is no pulmonic stenosis. Pericardium: There is no significant pericardial effusion. Aorta: There is no dilatation of the ascending aorta. There is no dilatation of the aortic arch. There is no dilation of the aortic root. Pulmonary Artery: The main pulmonary artery is not well visualized. Venous: The inferior vena cava appears normal in size. There is a greater than 50% respiratory change in the inferior vena cava dimension. Conclusions The left ventricular chamber size is normal. There is no left ventricular hypertrophy. There is normal left ventricular systolic function. The estimated ejection fraction is 55-60%. The left atrial chamber size is normal. The right ventricular chamber size and systolic function are within normal limits. No more than mild valvular regurgitation noted. There is evidence of mild pulmonary hypertension. No prior studies available for comparison at time of interpretation. Measurements Name Value Normal Range RVIDd (AP) 2D 2.2 cm (0.9 - 2.6) RVDdMajor (2D) 3.1 cm (2.2 - 4.4) RAd ISD 4CH 4.7 cm (3.4 - 4.9) RA (A4C)W 3.6 cm (2.9 - 4.6) IVSd (2D) 0.8 cm (0.6 - 1) LVPWd (2D) 0.8 cm (0.6 - 1) LVIDd (2D) 3.6 cm (3.6 - 5.4) LVIDs (2D) 1.9 cm - LV FS (2D) 27 % (25 - 45) Aortic Annulus 1.6 cm (1.4 - 2.6) Ao root diameter (2D) 2.8 cm (2.1 - 3.5) Aortic arch 2.9 cm (1.8 - 3.4) Descending Ao 0.4 cm - LA dimension (AP) 2D 3.1 cm (2.3 - 3.8) LAd ISD 4CH 5 cm (2.9 - 5.3) LA ISD 4CH W 3.5 cm (2.5 - 4.5) Name Value Normal Range LA ESV SP 4CH (A/L) 35 ml - LA ESV SP 2CH (A/L) 27 ml - LA ESV BP (A/L) 32 ml - LA ESV BP (A/L) index 21.49 ml/m2 - LA ESV SP 4CH (MOD) 33 ml - LA ESV SP 2CH (MOD) 24 ml - Name Value Normal Range MV E-wave Vmax 1.2 m/sec - MV deceleration time 168 msec - MV A-wave Vmax 1.03 m/sec - MV E:A ratio 1.18 ratio - LV septal e' Vmax 0.07 m/sec - LV lateral e' Vmax 0.08 m/sec - LV E:e' septal ratio 17.14 ratio - LV E:e' lateral ratio 15 ratio - Name Value Normal Range AV Vmax 1.2 m/sec - AV VTI 25.9 cm - AV peak gradient 6.2 mmHg - AV mean gradient 3.64 mmHg - LVOT Vmax 1.2 m/sec - LVOT VTI 20.82 cm - LVOT peak gradient 5.99 mmHg - LVOT mean gradient 2.97 mmHg - AR PHT 322 msec - AR peak gradient 56.4 mmHg - Name Value Normal Range MR Vmax 4.21 m/sec - MR VTI 114.6 cm - Name Value Normal Range TR Vmax 3 m/sec - TR peak gradient 35 mmHg - RAP 3 mmHg - RVSP 38 mmHg - IVC diameter 1.8 cm - Name Value Normal Range PV Vmax 0.7 m/sec - PV peak gradient 1.95 mmHg -
[2017-06-12] MEDS: Warfarin TAB(*) 4 MG PO SCH (16:41)
[2017-06-13] MEDS: Omeprazole CAP* 20 MG PO SCH (05:20)
[2017-06-13 08:01] LABS: ABS Basophils 0.1 10^3/ul (0-0.2); ABS Eosinophils 0.1 10^3/ul (0-0.6); ABS Lymphocytes 0.7 10^3/ul (1.0-4.8); ABS Monocytes 0.8 10^3/ul (0-0.8); ABS Neutrophils 7.3 10^3/ul (1.5-7.7); ABS Nucleated RBC 0 10^3/ul; Eosinophil % 1.3 % (0-6); Hematocrit 28 % (35-47); Hemoglobin 9.8 g/dl (12.0-16.0); Lymphocyte % 7.5 % (25-47); Mean Corpuscular HGB Conc 35 g/dl (31-36); Mean Corpuscular Hemoglobin 31 pg (27-31); Mean Corpuscular Volume 88 fL (80-97); Mean Platelet Volume 8 um3 (7.4-10.4); Nucleated Red Blood Cells % 0; Platelet Count 202 10^3/ul (150-450); Red Blood Count 3.21 10^6/ul (4.0-5.4); Red Cell Distribution Width 13 % (10.5-15)
[2017-06-13 08:06] LABS: INR 2.65 (0.77-1.02)
[2017-06-13 08:19] LABS: EGFR Non-African American 70.4 (>60)
[2017-06-13] MEDS ORDERED: Azithromycin IV(*) 500 MG in NS 0.9% 250 ML* 250 ML IVPB SCH (08:31)
[2017-06-13] MEDS: Docusate CAP* 100 MG PO SCH ×2 (09:11→20:13)
[2017-06-13] MEDS ORDERED: NS 0.9% 500 ML* 500 ML IV ONE (09:11)
[2017-06-13] MEDS: Azithromycin IV(*) 500 MG in D5W 250 ML BAG* 250 ML IVPB SCH (09:15)
--- NOTE | 2017-06-13 09:53 | PN ---
Subjective Date of Service: 06/13/17 Interval History: Pt is feeling well. She denies any pain or SOB. She was shocked when I told her that her HR was 130's. She could not feel her heart racing. Objective Active Medications: Acetaminophen (Tylenol Tab*) 325 mg PO Q4H PRN PRN Reason: PAIN Last Admin: 06/11/17 06:17 Dose: 325 mg Docusate Sodium (Colace Cap*) 200 mg PO BID [facility] Last Admin: 06/13/17 09:11 Dose: 200 mg Ceftriaxone Sodium 1,000 mg/ (Sterile Water) 10 mls @ 40 mls/hr IVPB Q24H [facility] Last Admin: 06/12/17 10:35 Dose: 40 mls/hr Azithromycin 500 mg/ Sodium (Chloride) 250 mls @ 250 mls/hr IVPB 1000 DASHAWN Azithromycin 500 mg/ Dextrose 250 mls @ 250 mls/hr IVPB ONCE ONE Stop: 06/13/17 10:59 Last Admin: 06/13/17 09:16 Dose: Not Given Melatonin (Melatonin (Nf)) 3 mg PO BEDTIME PRN; Protocol PRN Reason: Sleep Omeprazole (Prilosec Cap*) 20 mg PO DAILY@0600 [facility] Last Admin: 06/13/17 05:20 Dose: 20 mg Ondansetron HCl (Zofran Inj*) 4 mg IV Q6H PRN PRN Reason: NAUSEA Last Admin: 06/11/17 12:02 Dose: 4 mg Tramadol HCl (Ultram*) 50 mg PO Q6H PRN PRN Reason: PAIN Warfarin Sodium (Coumadin Tab(*)) 4 mg PO DAILY@1700 [facility] PRN Reason: Protocol Last Admin: 06/12/17 16:41 Dose: 4 mg Vital Signs - 8 hr 06/13/17 06/13/17 06/13/17 02:21 07:12 07:52 Temperature 100.4 F 99.3 F Pulse Rate 126 99 Respiratory 16 18 18 Rate Blood Pressure 151/69 124/60 (mmHg) O2 Sat by Pulse 97 95 95 Oximetry Oxygen Devices in Use Now: None Appearance: Elderly female sitting in a chair, NAD Eyes: No Scleral Icterus Ears/Nose/Mouth/Throat: Mucous Membranes Moist Respiratory: Symmetrical Chest Expansion and Respiratory Effort, Clear to Auscultation - decreased breath sounds at the bases Cardiovascular: NL Sounds; No Murmurs; No JVD, No Edema, - - tachycardic but regular Abdominal: NL Sounds; No Tenderness; No Distention Extremities: No Clubbing, Cyanosis Skin: No Rash or Ulcers, No Nodules or Sclerosis Neurological: - - pleasantly confused Result Diagrams: 06/13/17 07:44 06/13/17 07:44 Additional Lab and Data: Lab Results 06/09/17 06/09/17 06/09/17 Range/Units 20:15 20:15 20:15 WBC 13.0 H (3.5-10.8) 10^3/ul RBC 3.96 L (4.0-5.4) 10^6/ul Hgb 11.9 L (12.0-16.0) g/dl Hct 35 (35-47) % MCV 89 (80-97) fL MCH 30 (27-31) pg MCHC 34 (31-36) g/dl RDW 14 (10.5-15) % Plt Count 180 (150-450) 10^3/ul MPV 8 (7.4-10.4) um3 Neut % (Auto) 76.4 (38-83) % Lymph % (Auto) 10.5 L (25-47) % [place] % (Auto) 10.5 H (0-7) % Eos % (Auto) 1.9 (0-6) % Baso % (Auto) 0.7 (0-2) % Absolute Neuts (auto) 9.9 H (1.5-7.7) 10^3/ul Absolute Lymphs (auto) 1.4 (1.0-4.8) 10^3/ul Absolute Monos (auto) 1.4 H (0-0.8) 10^3/ul Absolute Eos (auto) 0.2 (0-0.6) 10^3/ul Absolute Basos (auto) 0.1 (0-0.2) 10^3/ul Absolute Nucleated RBC 0 10^3/ul Nucleated RBC % 0.1 INR (Anticoag Therapy) 1.40 H (0.77-1.02) APTT 27.4 (26.0-36.3) seconds D-Dimer, Quantitative 854 H (Less Than 230) ng/mL Sodium (133-145) mmol/L Potassium (3.5-5.0) mmol/L Chloride (101-111) mmol/L Carbon Dioxide (22-32) mmol/L Anion Gap (2-11) mmol/L BUN (6-24) mg/dL Creatinine (0.51-0.95) mg/dL Est GFR ( Amer) (>60) Est GFR (Non-Af Amer) (>60) BUN/Creatinine Ratio (8-20) Glucose (70-100) mg/dL Calcium (8.6-10.3) mg/dL Total Bilirubin (0.2-1.0) mg/dL AST (13-39) U/L ALT (7-52) U/L Alkaline Phosphatase (34-104) U/L Troponin I (<0.04) ng/mL B-Natriuretic Peptide 77 ( - 100) pg/mL Total Protein (6.4-8.9) g/dL Albumin (3.2-5.2) g/dL Globulin (2-4) g/dL Albumin/Globulin Ratio (1-3) /15/18 Range/Units 20:15 WBC (3.5-10.8) 10^3/ul RBC (4.0-5.4) 10^6/ul Hgb (12.0-16.0) g/dl Hct (35-47) % MCV (80-97) fL MCH (27-31) pg MCHC (31-36) g/dl RDW (10.5-15) % Plt Count (150-450) 10^3/ul MPV (7.4-10.4) um3 Neut % (Auto) (38-83) % Lymph % (Auto) (25-47) % [place] % (Auto) (0-7) % Eos % (Auto) (0-6) % Baso % (Auto) (0-2) % Absolute Neuts (auto) (1.5-7.7) 10^3/ul Absolute Lymphs (auto) (1.0-4.8) 10^3/ul Absolute Monos (auto) (0-0.8) 10^3/ul Absolute Eos (auto) (0-0.6) 10^3/ul Absolute Basos (auto) (0-0.2) 10^3/ul Absolute Nucleated RBC 10^3/ul Nucleated RBC % INR (Anticoag Therapy) (0.77-1.02) APTT (26.0-36.3) seconds D-Dimer, Quantitative (Less Than 230) ng/mL Sodium 137 (133-145) mmol/L Potassium 4.2 (3.5-5.0) mmol/L Chloride 103 (101-111) mmol/L Carbon Dioxide 26 (22-32) mmol/L Anion Gap 8 (2-11) mmol/L BUN 11 (6-24) mg/dL Creatinine 0.89 (0.51-0.95) mg/dL Est GFR ( Amer) 77.7 (>60) Est GFR (Non-Af Amer) 60.4 (>60) BUN/Creatinine Ratio 12.4 (8-20) Glucose 119 H (70-100) mg/dL Calcium 9.8 (8.6-10.3) mg/dL Total Bilirubin 0.70 (0.2-1.0) mg/dL AST 21 (13-39) U/L ALT 20 (7-52) U/L Alkaline Phosphatase 78 (34-104) U/L Troponin I 0.00 (<0.04) ng/mL B-Natriuretic Peptide ( - 100) pg/mL Total Protein 6.8 (6.4-8.9) g/dL Albumin 4.4 (3.2-5.2) g/dL Globulin 2.4 (2-4) g/dL Albumin/Globulin Ratio 1.8 (1-3) Assess/Plan/Problems-Billing Ms Villa is an 86 yo F who has a h/o DVT, factor V leiden deficiency and mild cognitive impairment who presented to the ER with c/o upper back and R shoulder pain and was found to have multiple L lower lobe pulmonary emboli. - Patient Problems (1) Pulmonary emboli Current Visit: Yes Status: Acute Code(s): I26.99 - OTHER PULMONARY EMBOLISM WITHOUT ACUTE COR PULMONALE SNOMED Code(s): 07257007 Comment: INR remains therapeutic. Will continue coumadin 4mg tonight. Echo does not show any evidence of R heart strain. (2) Tachycardia Current Visit: Yes Status: Acute Code(s): R00.0 - TACHYCARDIA, UNSPECIFIED SNOMED Code(s): 5666767 Comment: The patient remains tachycardic. ? secondary to volume depletion vs secondary to PEs (seems unlikely as she has no strain on echo) vs secondary infection. Will check orthostatics and give fluid challenge to see if her HR improves. (3) Fever Current Visit: Yes Status: Acute Code(s): R50.9 - FEVER, UNSPECIFIED SNOMED Code(s): 373045956 Comment: She continues to have intermittent low grade fevers. ? pulmonary infarct that would perhaps cause lingering fevers vs CAP. Continue ceftriaxone and azithromycin for now. Consider ID consult (4) DVT prophylaxis Current Visit: Yes Status: Acute Code(s): EYX9515 - SNOMED Code(s): 767231749 Comment: coumadin (5) Full code status Current Visit: Yes Status: Acute Code(s): Z78.9 - OTHER SPECIFIED HEALTH STATUS SNOMED Code(s): 216947464
[2017-06-13] MEDS ORDERED: Azithromycin IV(*) 500 MG in D5W 250 ML BAG IVPB ONE (10:00)
[2017-06-13] MEDS: cefTRIAXone 1000 MG SYRINGE IVPB ONCE IVPB SCH ×2 (12:31)
[2017-06-13] MEDS ORDERED: NS 0.9% 1000 ML* 1,000 ML IV ONE (13:13)
[2017-06-13] MEDS: Warfarin TAB(*) 4 MG PO SCH (17:03)
[2017-06-14] MEDS: Omeprazole CAP* 20 MG PO SCH (05:53)
[2017-06-14 06:58] LABS: ABS Basophils 0.1 10^3/ul (0-0.2); ABS Eosinophils 0.3 10^3/ul (0-0.6); ABS Lymphocytes 0.7 10^3/ul (1.0-4.8); ABS Monocytes 0.8 10^3/ul (0-0.8); ABS Neutrophils 6.1 10^3/ul (1.5-7.7); ABS Nucleated RBC 0 10^3/ul; Eosinophil % 3.3 % (0-6); Hematocrit 28 % (35-47); Hemoglobin 9.5 g/dl (12.0-16.0); Lymphocyte % 8.7 % (25-47); Mean Corpuscular HGB Conc 34 g/dl (31-36); Mean Corpuscular Hemoglobin 30 pg (27-31); Mean Corpuscular Volume 88 fL (80-97); Mean Platelet Volume 8 um3 (7.4-10.4); Nucleated Red Blood Cells % 0; Platelet Count 202 10^3/ul (150-450); Red Blood Count 3.15 10^6/ul (4.0-5.4); Red Cell Distribution Width 13 % (10.5-15); White Blood Count 7.9 10^3/ul (3.5-10.8)
[2017-06-14 07:04] LABS: INR 3.39 (0.77-1.02)
[2017-06-14] MEDS ORDERED: Metoprolol Tartrate TAB* 25 MG PO SCH (09:08)
[2017-06-14 09:10] VITALS: BP 117/53
[2017-06-14] MEDS: Docusate CAP* 100 MG PO SCH (09:39)
[2017-06-14] MEDS ORDERED: Azithromycin IV(*) 500 MG in NS 0.9% 250 ML* 250 ML IVPB SCH (10:00)
--- NOTE | 2017-06-14 10:07 | DS ---
CC: Dr. Beck; [facility] * DISCHARGE SUMMARY: DATE OF ADMISSION: 06/09/17. DATE OF DISCHARGE: 06/14/17. PRIMARY CARE PHYSICIAN: Dr. Beck. PRINCIPAL DIAGNOSIS: Pulmonary embolism. SECONDARY DIAGNOSES: 1. Factor V Leiden deficiency. 2. Deep venous thrombosis. 3. Moderate dementia. DISCHARGE MEDICATIONS: 1. Tylenol 325 mg p.o. q. 4 hours p.r.n. pain. 2. Coumadin 1 mg p.o. on the evening of 06/14/17, then 3 mg p.o. daily. 3. Metoprolol tartrate 12.5 mg p.o. q. 12 hours. 4. Colace 200 mg p.o. b.i.d. p.r.n. constipation. 5. Vantin 200 mg p.o. twice daily x8 doses. 6. Azithromycin 250 mg p.o. daily x2 doses. HOSPITAL COURSE: Ms. Villa is an 86-year-old female who presented to the emergency room on 06/09/17 with complaints of back pain. The patient had recently been identified to have a DVT despite being on Xarelto. The Xarelto had been discontinued and she was switched to Coumadin without bridging with Lovenox. The patient underwent a CT of the chest which revealed pulmonary emboli. The patient was started on Lovenox to bridge to a therapeutic INR. The patient has done well in terms of pulmonary embolism. During the course of the hospitalization, however, it was noted that she has been having intermittent low grade fevers and tachycardia into the one-teens. Generally, her heart rate has been under better control over the last 24 hours; however, she still will get into the low 100s. I suspect that the tachycardia and the intermittent low-grade fevers may be related to the pulmonary embolism/ possible pulmonary infarction. The patient was started on ceftriaxone and azithromycin for possible left lower lobe pneumonia based on the results of the CTA; however, this did not seem to make much of a difference in her fever or heart rate. The patient will continue on azithromycin x2 more days and Vantin for 4 more days. The patient's INR was supratherapeutic on the day of discharge at 3.9. This took a jump from 2.65 the day previous. She should receive Coumadin 1 mg this evening, followed by 3 mg daily. Her actual dose of Coumadin that she will need to be on long-term is not completely clear at this point, as the azithromycin is likely affecting her INR. She should have an INR check on 06/16 through 06/17/17. On the day of discharge, the patient was awake, alert and oriented, sitting up in the chair, in no acute distress. She is very mildly tachycardiac. Her lungs are clear. Her abdomen is soft, nontender, and nondistended. The patient is pleasantly confused. FOLLOW-UP CONCERNS: The patient is being discharged to [facility] for subacute rehab today, 06/14/17. ACTIVITY LEVEL: As tolerated. DIET: Regular. CONDITION ON DISCHARGE: Stable. The patient does have an appointment established with Dr. Martinez for 06/15/17 at 9 a.m. The patient should keep this appointment as it is difficult to get into the neurology office in a timely fashion. TIME SPENT: Thirty-five minutes were spent discharging this patient. [id number]/[facility] #: [id number] [place]
[2017-06-14] MEDS: cefTRIAXone 1000 MG SYRINGE IVPB ONCE IVPB SCH ×2 (10:52)
== END 2017-06-14 12:20 | DRG 175 ==
LOC: ED 19:04 → MED 23:11
PROVIDERS: ADMIT Hospitalist; ATTEND Hospitalist
DX: I26.99 Other pulmonary embolism without acute cor pulmonale (principal); J18.9 Pneumonia, unspecified organism; D68.2 Hereditary deficiency of other clotting factors; I82.409 Acute embolism and thrombosis of unspecified deep veins of unspecified lower extremity; F02.80 Dementia in other diseases classified elsewhere, unspecified severity, without behavioral disturbance, psychotic disturbance, mood disturbance, and anxiety; G31.84 Mild cognitive impairment of uncertain or unknown etiology; Z79.1 Long term (current) use of non-steroidal anti-inflammatories (NSAID); Z79.01 Long term (current) use of anticoagulants; Z88.0 Allergy status to penicillin; Z88.2 Allergy status to sulfonamides; Z91.048 Other nonmedicinal substance allergy status; Z80.0 Family history of malignant neoplasm of digestive organs
CPT/HCPCS: 36415; 71045; 71275; 80048; 80053; 81003; 81015; 82565; 83880; 84484; 84520; 85025; 85027; 85379; 85610; 85730; 87086; 93005; 93306; 99284; A9270-GY; G8978-GP-CI; G8978-GP-CL; G8979-GP-CH; G8979-GP-CI; G8987-GO-CI; G8988-GO-CH; J0456; J0696; J1650; J1885; J2405; Q9967